=== PATIENT | male | born 1975 | race Caucasian/White ===

== ENCOUNTER 2021-11-07 07:59 | Day surgery (SDC) | payer SELFPAY ==
[2021-11-07] VITALS (13 sets, daily range): BP systolic 95–135; BP diastolic 48–86; PULSE 48–73; RESP 16–20; O2SAT 92–100; BMI 28.5
--- NOTE | 2021-11-07 | IR_ITS ---
APPROVED REPORT Patient Location: [facility] Safety Engineer: JUAN MANUEL White RT (R) PROCEDURES Left heart catheterization Left ventriculogram Selective coronary angiogram Drug-eluting stent deployment to the mid dominant right coronary INDICATION Coronary artery disease, Abnormal Myoview with ischemia in the posterior descending artery distribution, Angina pectoris Informed consent was obtained prior to the procedure. COMPLICATIONS None Estimated Blood Loss: Less than 10 mls TECHNIQUE One percent lidocaine used to anesthetize the right anterior aspect of the wrist. The right radial artery was accessed via the Seldinger technique. A 6 [place] sheath was placed in the right radial artery. 2.5 mg of verapamil, 800 mcg of nitroglycerin, 1mg Lidocaine and 5000 U Heparin were given through the arterial sheath. The papa catheter was also used to perform left heart catheterization, left ventriculogram and selective coronary angiogram. At the end of the diagnostic angiogram therapeutic heparin was administered giving a therapeutic ACT and the same guide catheter was placed in the right coronary artery followed by a Choice PT extra-support wire. A 4 mm x 22 mm resolute José Antonio stent was deployed at 18 aure reducing the hemodynamically severe stenosis to 0%. At the end the procedure the apparatus was removed the sheath was removed and hemostasis was achieved using TR banding patient was transferred to the postop putting her stable condition ANGIOGRAPHIC RESULTS The left main artery Normal The left anterior descending artery Has minimal proximal and mid vessel 10% luminal irregularities The circumflex artery Nondominant with mild 10% luminal irregularities The right coronary artery Is a large dominant vessel and has a concentric 50% stenosis followed by poststenotic dilatation with diffuse 10% stenoses throughout The THIBODEAUX ventriculogram reveals Normal 65% The left ventricular end-diastolic pressure 15 mmHg IMPRESSION Hemodynamically severe stenosis mostly dominant right coronary artery which was supported by the abnormal Myoview as well as angina pectoris and poststenotic dilatation with successful stenting reducing the stenosis to 0% Normal ejection fraction Borderline LVEDP PLAN 1. Dual antiplatelet therapy 2. LDL less than 55 to be achieved with high intensity statin 3. Cardiac rehabilitation 4. Avoidance of tobacco products 5. Aggressive risk factor modification Electronically signed by : Clyde Vicente MD 11/07/2021 09:37:05
[2021-11-07 08:17] LABS: Coronavirus 19, PCR Not Detected (NotDetected); Influenza A, PCR Not Detected (NotDetected); Influenza B, PCR Not Detected (NotDetected)
[2021-11-07 08:30] LABS: Basophils # 0.2 K/mm3 (0-0.2); Basophils % 2.7 % (0.1-2.0); Eosinophils # 0.1 K/mm3 (0.0-0.4); Eosinophils % 1.6 % (0.1-12.0); Hemoglobin 15.9 g/dL (14.1-18.0); Lymphocytes # 2.1 K/mm3 (0.7-4.5); Mean Corpuscular Hemoglobin 32.1 pg (27.0-31.2); Mean Corpuscular Volume 94.5 fl (80-94); Mean Platelet Volume 10.2 fl (7.4-10.4); Monocytes # 0.3 K/mm3 (0.1-1.0); Monocytes % 4.8 % (1.7-9.3); Neutrophils % 59.9 % (37.0-80.0); Platelet Count 143 K/mm3 (142-424); Red Blood Count 4.97 M/mm3 (4.60-6.20); Red Cell Distribution Width 12.6 % (11.5-17.5); White Blood Count 6.6 K/mm3 (4.8-10.8)
[2021-11-07 08:32] LABS: Chloride 106 mmol/L (98-107); Sodium 141 mmol/L (136-145)
[2021-11-07 08:33] LABS: Potassium 4.2 mmoL/L (3.5-5.1)
[2021-11-07 08:36] LABS: Anion Gap 9.2 mEq/L (5-15); Blood Urea Nitrogen 13 mg/dl (9-20); Calcium 9.3 mg/dl (8.4-10.2); Carbon Dioxide 30 mmol/L (22.0-30.0); Creatinine Clearance Estimated 174 mL/min (50-200); Estimated Glomerular Filt Rate 120 ml/min (>60); GFR (African American) 146 ML/MIN (>60); Glucose 114 mg/dl (74-100)
[2021-11-07 12:03] LABS: CATHL Activated Clotting Time 369 SEC (74-125)
--- NOTE | 2021-11-07 13:05 | [facility].PHACLD ---
Dung Salas has received discharge medication counseling on the following medications: ASPIRIN PLAVIX (NEW) METOPROLOL ATORVASTATIN HELEN/ARB NOT INDICATED PER MD. ALL QUESTIONS/CONCERNS WERE ANSWERED. -MIGUEL SHEEHAN, LAUREND
== END 2021-11-07 13:19 | disposition home or self-care (01) ==
PROVIDERS: Visit Provider Internal Medicine
DX: R07.9 Chest pain, unspecified (principal); I25.118 Atherosclerotic heart disease of native coronary artery with other forms of angina pectoris; Z79.899 Other long term (current) drug therapy; R94.39 Abnormal result of other cardiovascular function study; Z20.822 Contact with and (suspected) exposure to COVID-19
CPT/HCPCS: 36415; 80048; 85025; 85347; 92928; 93458; 99152; C1725; C1769; C1876; C9600; C9803; J1644; Q9967; U0003; U0005